=== PATIENT | female | born 1960 | race Asian ===

== ENCOUNTER → 2017-01-17 | Outpatient (CLI) | payer MEDICAID | LOC: CIMAGING 08:46 | PROVIDERS: ATTEND Family Medicine | DX: Z12.31 Encounter for screening mammogram for malignant neoplasm of breast (principal) | CPT/HCPCS: G0202 ==

== ENCOUNTER → 2018-01-19 | Outpatient (CLI) | payer MEDICAID | LOC: CIMAGING 12:11 | PROVIDERS: ATTEND Family Medicine | DX: Z12.31 Encounter for screening mammogram for malignant neoplasm of breast (principal) ==

== ENCOUNTER → 2019-02-26 | Outpatient (CLI) | payer MEDICAID | LOC: CIMAGING 11:12 ==